=== PATIENT | female | born 1955 | race Caucasian/White ===

== ENCOUNTER → 2022-03-31 12:25 | Outpatient (CLI) | payer MEDICARE, SELFPAY ==
--- NOTE | ~2022-03-31 | MM_ITS ---
EXAMINATION: MM screening [facility] BI w [place] HISTORY: Screening TECHNIQUE: Craniocaudal and mediolateral oblique 3-D tomosynthesis images were obtained and synthetic 2-D images were generated. CAD analysis was submitted and interpreted. COMPARISON: Comparison to multiple prior studies sequentially, with oldest reviewed study dated 11/2014. BREAST PARENCHYMAL COMPOSITION: There are scattered areas of fibroglandular density. FINDINGS: There is no evidence of suspicious mass, calcification, or architectural distortion to sugg est malignancy in either breast. There has been no suspicious interval change. IMPRESSION: 1. No mammographic evidence of malignancy. 2. Recommend routine screening mammography in one year. BI-RADS Category 1: Negative Reviewed, dictated and finalized at location A.
== END ==
PROVIDERS: PCP Family Medicine; Visit Provider Family Medicine
DX: Z12.31 Encounter for screening mammogram for malignant neoplasm of breast (principal)
CPT/HCPCS: 77063; 77067

== ENCOUNTER 2022-04-08 11:50 | Day surgery (SDC) | payer MEDICARE, SELFPAY ==
[2022-03-30 11:22] VITALS: BMI 35.3
--- NOTE | 2022-04-07 08:54 | WPDANESEPPF ---
Anes - Initial Pre Proc Eval Procedure: Operation Date: 04/08/22 13:30 Proposed Procedures p Screening Colonoscopy - Clifford Garcia MD Date/Time: 04/07/22 08:54 Surgeon: Clifford Garcia MD Pre Op Diagnosis: History of colon polyp Patient Data Age: 66 Gender: F Height: 1.6 m Weight: 90.5 kg Allergies Allergy/AdvReac Type Severity Reaction Status Date / Time No Known Allergies Allergy Mild Verified 03/30/22 11:10 Home Medications Medication Instructions Recorded Confirmed Type atorvastatin 40 mg tablet 40 mg PO DAILY 03/30/22 04/08/22 History candesartan 32 1 tablet PO DAILY 03/30/22 04/08/22 History mg-hydrochlorothiazide 12.5 mg tablet nebivolol 5 mg tablet (Bystolic) 5 mg PO DAILY 03/30/22 04/08/22 History omeprazole 20 mg tablet,delayed 20 mg PO DAILY 03/30/22 04/08/22 History release Patient hx anesthesia problems: none Family hx anesthesia problems: none Results Review: All pre-operative results and documents have been reviewed as part of the pre-operative evaluation. [facility] Past Medical History Medical History (Updated 04/07/22 @ 08:55 by Colton Guerra DO) GERD (gastroesophageal reflux disease) Hyperlipidemia Hypertension Family History Family History (Updated 06/14/14 @ 07:13 by DOCTOR UNKNOWN) Father Hypertension Mother Family history of heart disease in male family member before age 55 Social History Social History Smoking status: Never smoker Alcohol intake: current Substance use type: does not use Living arrangements: with family Spiritual care concerns: No Anes - Eval Final PreProcedure Day of Procedure 04/07/22 08:54 Patient weight: obese Heart: regular rate and rhythm Lungs: clear to auscultation Airway: Mallampati scale class II Neurological: alert and oriented Last oral intake: >/= 8 hours ASA classification: III Emergent: no Anesthetic plan: proceed Anesthesia type and monitoring: general GIVS and standard monitoring Results Review: All pre-operative results and documents have been reviewed as part of the pre-operative evaluation. Informed Consent: The patient's anesthetic plan and its attendant risks and benefits were discussed with the patient/family/POA. Questions were solicited and answers provided to the satisfaction of the patient/family/POA.
[2022-04-08 12:23] VITALS: BP 135/73; PULSE 74; RESP 14; TEMP 37.3; O2SAT 98
[2022-04-08 12:24] VITALS: BMI 33.3
[2022-04-08] MEDS: LACTATED RINGERS 1,000 ML 150 ML IV CONT (12:31)
--- NOTE | 2022-04-08 13:18 | PM.HPGS ---
History of Present Illness History of Present Illness Consent: Risks, benefits, and alternatives have been discussed and questions answered. Patient agrees to proceed with procedure. Chief complaint: History of colon polyp Narrative: Patricia Ascencio is a 66 year old female with a history of polyps, referred for colon cancer screening Review of Systems Review of Systems: All systems reviewed & are unremarkable except as noted in HPI and below PMFSH Past Medical History Medical History GERD (gastroesophageal reflux disease) Hyperlipidemia Hypertension Family History Family History Father Hypertension Mother Family history of heart disease in male family member before age 55 Social History Social History Smoking status: Never smoker Alcohol intake: current Substance use type: does not use Living arrangements: with family Spiritual care concerns: No Meds Home Medications and Allergies Home Medications Medication Instructions Recorded Confirmed Type atorvastatin 40 mg tablet 40 mg PO DAILY 03/30/22 04/08/22 History candesartan 32 1 tablet PO DAILY 03/30/22 04/08/22 History mg-hydrochlorothiazide 12.5 mg tablet nebivolol 5 mg tablet (Bystolic) 5 mg PO DAILY 03/30/22 04/08/22 History omeprazole 20 mg tablet,delayed 20 mg PO DAILY 03/30/22 04/08/22 History release Allergies Allergy/AdvReac Type Severity Reaction Status Date / Time No Known Allergies Allergy Mild Verified 03/30/22 11:10 Vital Signs Vital Signs - 24 hr 04/08/22 12:23 Temperature 37.3 C Pulse Rate 74 Respiratory Rate 14 Blood Pressure 135/73 Pulse Oximetry 98 Oxygen Delivery Room Air Exam Resp: Auscultation: clear to auscultation bilaterally Cardio: Rate: regular rate Rhythm: regular rhythm GI: GI Palp: Yes Soft to palpation and No Tenderness to palpation present (GI) Assessment and Plan Assessment and plan (1) Colon cancer screening: Code(s): Z12.11 - Encounter for screening for malignant neoplasm of colon Status: Acute Assessment and Plan: Colonoscopy with possible biopsy or polypectomy or cautery or injection of substances.
[2022-04-08 13:49] VITALS: BP 130/70; PULSE 60; RESP 16; O2SAT 100
[2022-04-08 14:00] VITALS: BP 130/66; PULSE 58; RESP 16; O2SAT 99
--- NOTE | 2022-04-08 14:07 | SUR.PHASEII ---
PT AWAKE AND ALERT. SITTING UPRIGHT DRINKING APPLE JUICE AND WATER
[2022-04-08 14:10] VITALS: BP 143/71; PULSE 62; RESP 16; O2SAT 98
== END 2022-04-08 14:21 | disposition home or self-care (01) ==
PROVIDERS: PCP Family Medicine; Visit Provider Internal Medicine Gastroenterology
PROC: 0DJD8ZZ Inspection of Lower Intestinal Tract, Via Natural or Artificial Opening Endoscopic (ICD-10-PCS; CPT 45378; principal; 2022-04-08 13:30)
DX: Z12.11 Encounter for screening for malignant neoplasm of colon (principal); K57.30 Diverticulosis of large intestine without perforation or abscess without bleeding
CPT/HCPCS: 45378

== ENCOUNTER 2024-07-10 12:28 | Outpatient (CLI) | payer MEDICARE, SELFPAY ==
--- NOTE | ~2024-07-10 | MM_ITS ---
EXAMINATION: MM screening [facility] BI w [place] HISTORY: Screening TECHNIQUE: Craniocaudal and mediolateral oblique 3-D tomosynthesis images were obtained and synthetic 2-D images were generated. CAD analysis was submitted and interpreted. COMPARISON: Comparison to multiple prior studies sequentially, with oldest reviewed study dated 07/18. BREAST PARENCHYMAL COMPOSITION: Not dense: There are scattered areas of fibroglandular density. FINDINGS: There is no evidence of suspicious mass, calcification, or architectural distortion to sugg est malignancy in either breast. There has been no suspicious interval change. IMPRESSION: 1. No mammographic evidence of malignancy. 2. Recommend routine screening mammography in one year. BI-RADS Category 1: Negative Reviewed, dictated and finalized at location B.
== END 2024-07-10 12:29 | disposition home or self-care (01) ==
LOC: MICIMG 12:29
PROVIDERS: PCP Family Medicine; Visit Provider Obstetrics & Gynecology
DX: Z12.31 Encounter for screening mammogram for malignant neoplasm of breast (principal)
CPT/HCPCS: 77063; 77067

== ENCOUNTER 2025-10-12 13:26 | Outpatient (CLI) | payer MEDICARE, SELFPAY ==
--- NOTE | ~2025-10-12 | DEXA_ITS ---
Bone Density Report Name: CHALO HANSEN Age: 70 Sex: Female Ethnicity: White Date of : 1955 Indication: postmenopausal; screening for osteoporosis; height loss; cancer; hysterectomy; Referring Provider: Jenelle Schroeder Study: Bone densitometry was performed. Exam Date: October 12, 2025 Accession number: [id number] Bone Density: Region BMD T-score Z-score Classification AP Spine(L1-L4) 1.081 0.3 2.4 Normal Femoral Neck (Left) 0.672 -1.6 0.2 Osteopenia Total Hip (Left) 0.904 -0.3 1.2 Normal Femoral Neck (Right) 0.634 -1.9 -0.1 Osteopenia Total Hip (Right) 0.830 -0.9 0.6 Normal Total Hip Mean 0.867 -0.6 0.9 Normal World Health Organization criteria for BMD impression classify patients as: Normal (T-score at or above -1.0), Osteopenia (T-score between -1.0 and -2.5), or Osteoporosis (T-score at or below -2.5). 10-year Fracture Risk(1): Major Osteoporotic Fracture 11% Hip Fracture 2.0% Reported Risk Factors: [place] (), Neck BMD=0.634, BMI=31.4 (1) FRAX(R) Version 3.08. Fracture probability calculated for an untreated patient. Fracture probability may be lower if the patient has received treatment. Previous Exams: -- Region Exam Age BMD T-score BMD Change BMD Change Date g/cm2 vs Baseline vs Previous -- AP Spine (L1-L4) 10/12/2025 70 1.081 0.3 11.6%# 13.4%# 07/29/2016 61 0.953 -0.9 -1.5% 7.0%# 05/20/2010 54 0.890 -1.4 -8.0%# 0.5%# 05/17/2009 53 0.886 -1.5 -8.5%* -8.5%* 05/05/2006 50 0.968 -0.7 Total Hip(Left) 10/12/2025 70 0.904 -0.3 -12.7%# -18.8%# 07/29/2016 61 1.114 1.4 7.5%* 23.4%# 05/20/2010 54 0.902 -0.3 -12.9%# -4.2%# 05/17/2009 53 0.942 0.0 -9.0%* -9.0%* 05/05/2006 50 1.035 0.8 Total Hip(Right) 10/12/2025 70 0.830 -0.9 -18.2%# -19.4%# 07/29/2016 61 1.030 0.7 1.6% 19.8%# 05/20/2010 54 0.860 -0.7 -15.2%# -2.9%# 05/17/2009 53 0.886 -0.5 -12.7%* -12.7%* 05/05/2006 50 1.014 0.6 -- *Denotes significance at 95% confidence level, LSC for AP Spine = 0.022 g/cm2, LSC for Total Hip = 0.027 g/cm2 # Denotes dissimilar scan types or analysis methods Clinical Information Provided by Patient: Has the following medical conditions: Cancer, Hysterectomy, ovarian cancer Patient maximum height was 64 Menopause Age: 43 No regular weight bearing exercise Does not regularly consume dairy products Drinks caffeinated beverages Onset of menses at age 13 Number of children 0 Impression: The patient has low bone mass, based on the Right Femoral Neck T-score. The patient has an estimated ten-year risk of hip fracture of 2% and an estimated ten-year risk of major fracture of 11%, based on the WHO FRAX algorithm. Unable to evaluate interval change due to the use of different scan modes. Discussion: BONE DENSITY IS LOW AT ONE OR MORE SKELETAL SITES. This patient's lowest T-score is low at one or more skeletal sites. It meets the World Health Organization's (WHO) criteria for ?low bone mass? (T-score between -1.0 and -2.5). The patient's 10-year risk of fracture as calculated by FRAX is less than the threshold where pharmacological therapy is recommended by the National Osteoporosis Foundation (NOF). However, all treatment decisions require clinical judgment and consideration of individual patient factors, including patient preferences, comorbidities, previous drug use, risk factors not captured in the FRAX model (e.g., frailty, falls, vitamin D deficiency, increased bone turnover, interval significant decline in bone density) and possible under or overestimation of fracture risk by FRAX. The patient should follow a healthful lifestyle (good nutrition with adequate calcium and vitamin D, and appropriate weight-bearing exercise). Follow-Up: Consider repeating this study in 2 to 3 years to reassess this patient's status, or sooner if there is some new clinical indication. Reported by: DAWN on 10/12/2025 2:12:00 PM. Reviewed, dictated and finalized at location A.
--- NOTE | ~2025-10-12 | MM_ITS ---
EXAMINATION: MM screening [facility] BI w [place] HISTORY: Screening. TECHNIQUE: Craniocaudal and mediolateral oblique 3-D tomosynthesis images were obtained and synthetic 2-D images were generated. CAD analysis was submitted and interpreted. COMPARISON: 2023, 2021, and 2018 BREAST PARENCHYMAL COMPOSITION: Not Dense: There are scattered areas of fibroglandular tissue FINDINGS: No suspicious masses are seen. There are no suspicious calcifications. No unexplained architectural distortion is seen. There are no skin or nipple abnormalities identified. There is no adenopathy seen on the images submitted. IMPRESSION: No mammographic evidence to suggest malignancy is seen. The patient may return to screening mammography as per ACR guidelines. BI-RADS 1 - Negative. Reviewed, dictated and finalized at location A. S DEVELOPER
== END 2025-10-12 13:27 | disposition home or self-care (01) ==
LOC: MICIMG 13:27
PROVIDERS: PCP Family Medicine; Visit Provider Family Medicine
DX: Z12.31 Encounter for screening mammogram for malignant neoplasm of breast (principal); M85.88 Other specified disorders of bone density and structure, other site; M85.852 Other specified disorders of bone density and structure, left thigh; M85.851 Other specified disorders of bone density and structure, right thigh
CPT/HCPCS: 77063; 77067; 77080